=== PATIENT | male | born 1955 | race Hispanic/Latino ===

== ENCOUNTER 2017-07-19 11:17 | Emergency (ER) | payer SELFPAY | END 2017-07-19 16:31 | disposition home or self-care (01) | LOC: ERS 11:17 | DX: J11.1 Influenza due to unidentified influenza virus with other respiratory manifestations (principal) | CPT/HCPCS: 99283 ==

== ENCOUNTER 2017-07-23 16:01 | Emergency (ER) | payer SELFPAY ==
[2017-07-23 18:40] LABS: #Basophils 0.1 thou/uL (0.0-0.2); #Eosinphils 0.2 thou/uL (0.0-0.7); #Lymphocytes 2.4 thou/uL (1.20-3.40); #Neutrophils 5.3 thou/uL (1.40-6.50); %Basophils 1.2 % (0.0-1.0); %Eosinophils 2.4 % (0.0-10.0); %Lymphocytes 26.9 % (21.0-51.0); %Monocytes 10.7 % (0.0-10.0); %Neutrophils 58.7 % (42.0-75.0); Hemoglobin 15.7 g/dL (14.0-18.0); Mean Corpuscular HGB CONC 33.8 g/dL (32.0-36.0); Mean Corpuscular Hemoglobin 32.8 pg (27.0-31.0); Mean Corpuscular Volume 97.1 fl (80.0-94.0); Mean Platelet Volume 8.9 fL (7.4-10.4); Platelet Count 231 thou/uL (130-400); RBC Distribution Width 11.8 % (11.5-14.5); White Blood Cell (WBC) Count 8.9 thou/uL (4.8-10.8)
[2017-07-23 19:02] LABS: CKMB 1.6 ng/mL (0-6.6); Troponin I Less than 0.010 ng/mL (< 0.028)
[2017-07-23 19:18] LABS: ALT (SGPT) 24 U/L (8-55); AST (SGOT) 19 U/L (5-34); Albumin 4.3 g/dL (3.5-5.0); Alkaline Phosphatase 71 U/L (40-150); Anion Gap 15 mmol/L (10-20); BUN (Urea Nitrogen) 21 mg/dL (8.4-25.7); Bilirubin, Total 0.6 mg/dL (0.2-1.2); CK (CPK) 69 U/L (30-200); Calc. Creatinine Clearance 0 mL/min (70-130); Carbon Dioxide 27 mmol/L (22-29); Chloride 106 mmol/L (98-107); Estimated GFR-MDRD Greater than 90; Globulin 3.3 g/dL (2.4-3.5); Glucose 104 mg/dL (70-105); Lipase 42 U/L (8-78); Protein, Total 7.6 g/dL (6.0-8.3); Sodium 143 mmol/L (136-145)
--- NOTE | 2017-07-23 20:15 | RAD ---
AP VIEW CHEST: INDICATIONS: Chest pain. IMPRESSION: No acute cardiopulmonary abnormality. [facility] POS: [facility]
== END 2017-07-23 20:17 | disposition home or self-care (01) ==
LOC: ERS 16:01
DX: J11.1 Influenza due to unidentified influenza virus with other respiratory manifestations (principal); I10 Essential (primary) hypertension
CPT/HCPCS: 36415; 71010; 80053; 82553; 83690; 84484; 85025; 93005

== ENCOUNTER 2017-10-24 10:50 | Observation (INO) | payer SELFPAY ==
--- NOTE | 2017-10-24 11:26 | RAD ---
FRONTAL VIEW CHEST: INDICATIONS: Chest pain. COMPARISON: 07/23/2017 FINDINGS: No consolidation, effusion, or discrete pneumothorax. There is mild vascular calcification. The oss eous structures are nonacute in appearance. IMPRESSION: Stable chest without lobar consolidation. POS: [facility]
[2017-10-24 11:31] LABS: #Basophils 0.1 thou/uL (0.0-0.2); #Eosinphils 0.3 thou/uL (0.0-0.7); #Lymphocytes 2.3 thou/uL (1.20-3.40); #Monocytes 0.6 thou/uL (0.11-0.59); #Neutrophils 3.9 thou/uL (1.40-6.50); %Eosinophils 4.5 % (0.0-10.0); %Lymphocytes 31.3 % (21.0-51.0); %Monocytes 8.4 % (0.0-10.0); %Neutrophils 54.8 % (42.0-75.0); Hemoglobin 16.4 g/dL (14.0-18.0); Mean Corpuscular HGB CONC 34.7 g/dL (32.0-36.0); Mean Corpuscular Hemoglobin 32.4 pg (27.0-31.0); Mean Corpuscular Volume 93.4 fl (80.0-94.0); Mean Platelet Volume 8.8 fL (7.4-10.4); Platelet Count 203 thou/uL (130-400); RBC Distribution Width 12.2 % (11.5-14.5); Red Blood Cell (RBC) Count 5.08 mill/uL (4.70-6.10); White Blood Cell (WBC) Count 7.2 thou/uL (4.8-10.8)
[2017-10-24 11:46] LABS: ALT (SGPT) 23 U/L (8-55); AST (SGOT) 20 U/L (5-34); Albumin 4.8 g/dL (3.5-5.0); Alkaline Phosphatase 74 U/L (40-150); Anion Gap 12 mmol/L (10-20); BUN (Urea Nitrogen) 17 mg/dL (8.4-25.7); CK (CPK) 148 U/L (30-200); Calc. Creatinine Clearance 0 mL/min (70-130); Calcium 10.2 mg/dL (7.8-10.44); Carbon Dioxide 27 mmol/L (22-29); Chloride 104 mmol/L (98-107); Estimated GFR-MDRD Greater than 90; Globulin 2.9 g/dL (2.4-3.5); Glucose 101 mg/dL (70-105); Lipase 36 U/L (8-78); Protein, Total 7.7 g/dL (6.0-8.3); Sodium 139 mmol/L (136-145)
[2017-10-24 11:50] LABS: CKMB 4.1 ng/mL (0-6.6); Troponin I Less than 0.010 ng/mL (< 0.028)
[2017-10-24] MEDS ORDERED: Nitroglycerin 2% Ointment 1 INCH/1 GM Packet ONE (12:18)
[2017-10-24 14:43] LABS: Troponin I Less than 0.010 ng/mL (< 0.028)
[2017-10-24 14:44] VITALS: BMI 31.2
[2017-10-24] MEDS ORDERED: Ondansetron HCl/PF 4 MG/2 ML Vial IVP PRN ×2 (14:45→19:05)
[2017-10-24] MEDS ORDERED: Ondansetron ODT 4 MG TAB PO PRN ×2 (14:46→19:05)
[2017-10-24] MEDS ORDERED: Hydrocortisone Acetate 25 MG Suppository PR PRN (15:57)
[2017-10-24] MEDS ORDERED: cloNIDine 0.1 MG TAB PO PRN (15:57)
[2017-10-24] MEDS ORDERED: hydrALAZINE 20 MG/ML VIAL SLOW IVP PRN (15:57)
[2017-10-24] MEDS ORDERED: Nitroglycerin 2% Ointment 1 INCH/1 GM Packet TOP PRN (15:59)
[2017-10-24] MEDS ORDERED: Amlodipine 5 MG TAB PO SCH (16:00)
[2017-10-24 16:16] LABS: Hemoglobin A1c 5.7 % (4.0-6.0)
[2017-10-24 18:19] LABS: Troponin I Less than 0.010 ng/mL (< 0.028)
[2017-10-24] MEDS ORDERED: Nitroglycerin 0.4 MG TAB (25 Tab Bottle) PO PRN (19:03)
[2017-10-24] MEDS ORDERED: Acetaminophen 325 MG TAB PO PRN (19:05)
[2017-10-24] MEDS ORDERED: Senokot 8.6 MG TAB PO PRN (19:05)
[2017-10-24] MEDS ORDERED: Calcium Carbonate 500 MG ChewTAB PO PRN (19:05)
--- NOTE | 2017-10-24 19:44 | PDOC.PN ---
- Subjective Encounter Start Date: 10/24/17 Encounter Start Time: 18:00 Patient seen and examined. Note dictated. - Objective Resuscitation Status: Resuscitation Status FULL:Full Resuscitation MAR Reviewed: Yes Vital Signs & Weight: Vital Signs (12 hours) Temp Pulse Resp BP BP Pulse Ox 10/24/17 17:18 65 173/95 H 10/24/17 14:52 192/105 H 10/24/17 14:45 98.3 F 94 15 10/24/17 14:42 98.3 F 94 15 201/97 H 92 L Weight Weight 199 lb 11.821 oz I&O: 10/23/17 10/24/17 10/25/17 06:59 06:59 06:59 Intake Total 250 Balance 250 Result Diagrams: 10/24/17 11:19 10/24/17 11:19 Radiology Reviewed by me: Yes (CXR - no infiltrate) EKG Reviewed by me: Yes (SR) Phys Exam - Physical Examination Constitutional: NAD HEENT: PERRLA, moist MMs, sclera anicteric Neck: no nodes, no JVD Respiratory: no wheezing, no rales, no rhonchi, clear to auscultation bilateral Cardiovascular: RRR, no significant murmur, no rub no reproducible chest wall tenderness Gastrointestinal: soft, non-tender, no distention, positive bowel sounds Musculoskeletal: no edema Neurological: non-focal, moves all 4 limbs Lymphatic: no nodes Psychiatric: normal affect, A&O x 3 Skin: no rash Dx/Plan - Plan DVT proph w/SCDs * Dictated Review of Systems - Review of Systems Constitutional: negative: fever, chills, sweats, weakness, malaise, other Eyes: negative: Pain, Vision Change, Conjunctivae Inflammation, Eyelid Inflammation, Redness, Other ENT: negative: Ear Pain, Ear Discharge, Nose Pain, Nose Discharge, Nose Congestion, Mouth Pain, Mouth Swelling, Throat Pain, Throat Swelling, Other Respiratory: negative: Cough, Dry, Shortness of Breath, Hemoptysis, SOB with Excertion, Pleuritic Pain, Sputum, Wheezing Cardiovascular: chest pain. negative: palpitations, orthopnea, paroxysmal nocturnal dyspnea, edema, light headedness, other Gastrointestinal: negative: Nausea, Vomiting, Abdominal Pain, Diarrhea, Constipation, Melena, Hematochezia, Other Genitourinary: negative: Dysuria, Frequency, Incontinence, Hematuria, Retention , Other Musculoskeletal: negative: Neck Pain, Shoulder Pain, Arm Pain, Back Pain, Hand Pain, Leg Pain, Foot Pain, Other Skin: negative: Rash, Lesions, Moshe, Bruising, Other Neurological: negative: Weakness, Numbness, Incoordination, Change in Speech, Confusion, Seizures, Other - Medications/Allergies Allergies/Adverse Reactions: Allergies Allergy/AdvReac Type Severity Reaction Status Date / Time diphenhydramine HCl Allergy Verified 01/23/16 23:21 [From Benadryl] pseudoephedrine HCl Allergy Verified 01/23/16 23:21 [From Sudafed] Medications: Current Medications Acetaminophen (Tylenol) 650 mg PO Q4H PRN PRN Reason: Headache/Fever or Pain Amlodipine Besylate (Norvasc) 5 mg PO DAILY RUBY Aspirin (Aspirin) 325 mg PO DAILY RUBY Calcium Carbonate (Tums) 1,000 mg PO Q4H PRN PRN Reason: Heartburn or Indigestion Clonidine (Catapres) 0.1 mg PO Q4H PRN PRN Reason: Systolic BP > 180 Docusate Sodium (Colace) 100 mg PO BID RUBY Famotidine (Pepcid) 20 mg PO BID RUBY Guaifenesin (Mucinex) 600 mg PO Q12HR RUBY Hydralazine HCl (Apresoline) 10 mg SLOW IVP Q4H PRN PRN Reason: SBP Greater Than 180 Hydrocortisone Acetate (Anusol-Hc) 25 mg MA BID PRN PRN Reason: Hemorrhoids Nitroglycerin (Nitro-Bid 2% Ointment) 0.5 inch TOP Q8HR PRN PRN Reason: SBP Greater Than 180 Nitroglycerin (Nitrostat) 0.4 mg PO Q5MIN PRN PRN Reason: Chest Pain Ondansetron HCl (Zofran Odt) 4 mg PO Q6H PRN PRN Reason: Nausea/Vomiting Ondansetron HCl (Zofran) 4 mg IVP Q6H PRN PRN Reason: Nausea/Vomiting Senna (Senokot) 2 tab PO HSPRN PRN PRN Reason: Constipation Sodium Chloride (Flush - Normal Saline) 10 ml IVF Q12HR RUBY Sodium Chloride (Flush - Normal Saline) 10 ml IVF PRN PRN PRN Reason: Saline Flush
--- NOTE | 2017-10-24 19:57 | HP ---
DATE OF ADMISSION: 10/24/2017 PRIMARY CARE PHYSICIAN: None. CHIEF COMPLAINT: Chest discomfort. HISTORY OF PRESENT ILLNESS: The patient is a 62-year-old male with family history of heart disease a nd untreated hypertension, presented to the emergency room with chest discomfort. Over the past one week or so, the patient has on and off chest pressure without any aggravating or re lieving factor. Sometimes the pain gets better when he lies down on the left side. The chest discom fort was dull/tightness like sometimes pressure-like mainly in the precordial area. No aggravating o r relieving factor reported. No associated nausea, vomiting, diaphoresis, palpitations, heartburn, r ecent immobilization, travel or dyspepsia reported. In the emergency room, initial vital signs showed temperature 98.4, respiratory rate 18, pulse of 84, blood pressure 156/84 with O2 saturation 98% on room air. His EKG showed normal sinus rhythm with n onspecific ST-T wave changes. He received aspirin with nitropatch in the emergency room. He denies any chest discomfort at this time. The chest discomfort usually last for a short duration, usually l ess than 2 minutes or so. PAST MEDICAL HISTORY: 1. Hypertension, untreated. 2. Cannabis abuse. 3. Former smoker. 4. Family history of heart disease. PAST SURGICAL HISTORY: Reviewed with the patient and none. ALLERGIES: The patient is allergic to BENADRYL and SUDAFED. CURRENT HOME MEDICATIONS: Reviewed with the patient and none. SOCIAL HISTORY: The patient is a former smoker. Abuses cannabis. No alcohol or other drug use. 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 FAMILY HISTORY: Positive for MT in his brother in 50s. REVIEW OF SYSTEMS, PHYSICAL EXAMINATION AND LABORATORY FINDINGS Please refer to my progress note. IMPRESSION: 1. Chest discomfort, rule out acute coronary syndrome. 2. Hypertension, uncontrolled. 3. Cannabis abuse. 4. Family history of heart disease. 5. Obesity with a body mass index of 31.3. 6. Impaired glucose tolerance with A1c 5.7. PLAN: The patient will be monitored in the telemetry unit. The patient has extensive family history of heart disease. He probably has intermediate probability for coronary artery disease. His A1c wa s 5.7. He also has chronic left upper extremity weakness that suddenly happened approximately 10 yea rs ago. He could have had a stroke in the past. He is currently not on any medications. He was ext ensively counseled on lifestyle modification. He will undergo a stress test in the morning. We will continue aspirin. We will start amlodipine. Cannabis cessation was emphasized. Plan of care was discussed with the patient in detail. He stated understanding.
[2017-10-24] MEDS: guaiFENesin ER 600 MG TAB PO SCH (20:04)
[2017-10-24] MEDS: Famotidine 20 MG TAB PO SCH (20:04)
[2017-10-24] MEDS: Docusate 100 MG CAP PO SCH (20:04)
[2017-10-25] MEDS: guaiFENesin ER 600 MG TAB PO SCH (08:42)
[2017-10-25] MEDS: Famotidine 20 MG TAB PO SCH (08:42)
[2017-10-25] MEDS: Docusate 100 MG CAP PO SCH (08:42)
[2017-10-25] MEDS ORDERED: Amlodipine 5 MG TAB PO SCH (09:00)
[2017-10-25] MEDS ORDERED: Aspirin 325 MG TAB PO SCH (09:00)
[2017-10-25 12:36] VITALS: BP 170/90; TEMP 97.9
--- NOTE | 2017-10-25 15:10 | NM ---
RADIONUCLIDE STRESS REST MYOCARDIAL PERFUSION SCAN WITH CT ATTENUATION CORRECTION AND SPECT IMAGING LEFT VENTRICULAR WALL MOTION EVALUATION AND EJECTION FRACTION: HISTORY: Chest pain. FINDINGS: Viraj protocol was used for a total test time of 6 minutes 0 seconds. There is homogeneous uptake of radiotracer throughout the left ventricular myocardium without focal perfusion defect or reversibili ty. QGS analysis of gated SPECT images shows no focal wall motion abnormalities. TID=0.8. LHR=41%. Left ventricular ejection fraction was calculated at 65%. IMPRESSION: Normal myocardial perfusion scan. Normal left ventricular ejection fraction. POS: [facility]
--- NOTE | 2017-10-25 15:16 | DIS ---
DATE OF ADMISSION: 10/24/2017 DATE OF DISCHARGE: 10/25/2017 CONDITION AT THE TIME OF DISCHARGE: Stable and improved. DISCHARGE DIAGNOSES: 1. Chest pain, noncardiac. Acute coronary syndrome ruled out. 2. Hypertension. 3. Chronic cannabis use. 4. History of former tobacco abuse. 5. Family history of diabetes and heart disease. PRIMARY CARE PHYSICIAN: None. The patient is instructed to set up a PCP. DISCHARGE MEDICATIONS: Lopressor 12.5 mg p.o. b.i.d., aspirin 81 mg daily, amlodipine 5 mg daily. PROCEDURES DONE DURING THE HOSPITAL: Nuclear medicine stress test, which is negative for any fixed o r reversible defects. Estimated ejection fraction around 65% or more. HISTORY OF PRESENT ILLNESS: Mr. Zurita is a 62-year-old male with past medical history of hypertens ion who is rather noncompliant with his medications and medical care, presented to the emergency room with complaints of chest discomfort. He was hemodynamically stable upon presentation and his EKG sh owed normal sinus rhythm with nonspecific changes. He was admitted for ACS rule out and was given as pirin. Please see admission history and physical for further detail. HOSPITAL COURSE: His cardiac enzymes were trended and were negative. He was hemodynamically stable except that his blood pressure was high. He was started on amlodipine and later beta nohemy was add ed given his family history of diabetes and heart disease and his personal history of uncontrolled hy pertension. He tolerated this very well. Nuclear medicine stress test was done and was negative for any ischemia reversible or fixed. His chest pain has resolved by the time of his admission. Counseling was provided with medication compliance. He was seen and examined prior to discharge. Hi s physical exam this morning include temperature 97.9, pulse of 81, respirations 18, saturating 92% o n room air, blood pressure 170/90. No acute distress, awake, alert, oriented x3. Chest is clear to auscultation without any wheezing, rales or rhonchi. Rate and rhythm is regular wi thout any murmur, rubs or gallops. Discharge plan was discussed with the patient and his present in the room. Dietitian was consul elvira to give them reading material about heart healthy and low carbohydrate diets. He will be dischar ge after his discussion with the dietitian.
[2017-10-25] MEDS ORDERED: Metoprolol Tartrate 25 MG TAB PO SCH (21:00)
--- NOTE | 2017-10-26 15:02 | EKG ---
Test Reason : CHEST PAIN Blood Pressure : / mmHG Vent. Rate : 080 BPM Atrial Rate : 080 BPM P-R Int : 140 ms QRS Dur : 082 ms QT Int : 378 ms P-R-T Axes : 007 -15 031 degrees QTc Int : 435 ms Normal sinus rhythm Inferior infarct , age undetermined Abnormal ECG Confirmed by AVILA ESCOBAR ([id number]), website/blog editor EZEKIEL VALADEZ ([id number]) on 10/26/2017 3:00:40 PM Referred By: Confirmed By:AVILA ESCOBAR
--- NOTE | 2017-11-20 15:13 | STRESS ---
Acquisition Time: 2017-10-25 10:36:14 Total Exercise Time: 00:06:00 Test Indications: CHEST PAIN Medications: Protocol: IVIS Max HR: 137 BPM 85% of Pred: 160 BPM Max BP: 230/100 mmHG Max Work Load: 7.3 METS RESTING ECG: NORMAL SINUS RHYTHM AT 73 BPM SYMPTOMS: FATIGUE HYPERTENSIVE BP RESPONSE ECTOPY: NONE ECG STRESS: NO SIGNIFICANT CHANGES INTERPRETATION: NEGATIVE GXT/AWAIT NUCLEAR IMAGES FOR DEFINITIVE DIAGNOSIS Confirmed by ALPA CAM ELLEN ([id number]) on 11/20/2017 3:13:07 PM Referred By: MD Kan ALANIS Confirmed By:SHEMAR CAM PA-C
== END 2017-10-25 16:31 | disposition home or self-care (01) ==
LOC: ERS 10:50 → 2SW 12:50
PROVIDERS: ADMIT Internal Medicine; ATTEND Internal Medicine
DX: F12.10 Cannabis abuse, uncomplicated; R07.89 Other chest pain; Z83.3 Family history of diabetes mellitus; Z68.38 Body mass index [BMI] 38.0-38.9, adult; Z88.8 Allergy status to other drugs, medicaments and biological substances; Z82.49 Family history of ischemic heart disease and other diseases of the circulatory system; I10 Essential (primary) hypertension; R73.02 Impaired glucose tolerance (oral); E66.9 Obesity, unspecified; Z87.891 Personal history of nicotine dependence; Z91.14 Patient's other noncompliance with medication regimen
CPT/HCPCS: 36415; 71045; 78452; 80053; 82553; 83036; 83690; 84484; 85025; 93005; 93017; 94760; A4216; A9500; G0378

== ENCOUNTER 2018-11-21 17:27 | Emergency (ER) | payer SELFPAY | END 2018-11-21 18:53 | disposition home or self-care (01) | LOC: ERS 17:27 | DX: S30.861A Insect bite (nonvenomous) of abdominal wall, initial encounter (principal); L03.818 Cellulitis of other sites; I10 Essential (primary) hypertension; W57.XXXA Bitten or stung by nonvenomous insect and other nonvenomous arthropods, initial encounter | CPT/HCPCS: 99282 ==

== ENCOUNTER 2020-11-11 22:40 | Emergency (ER) | payer SELFPAY | END 2020-11-11 23:57 | disposition home health service (06) | LOC: ERS 22:40 | DX: K03.81 Cracked tooth (principal); I10 Essential (primary) hypertension | CPT/HCPCS: 99282 ==

== ENCOUNTER 2021-02-08 08:17 | Emergency (ER) | payer BC, SELFPAY | END 2021-02-08 10:22 | disposition home or self-care (01) | LOC: ERS 08:17 | DX: U07.1 COVID-19 (principal); I10 Essential (primary) hypertension | CPT/HCPCS: 0241U; 71045; 80053; 84484; 85025; 93005; 96374; J1885 ==

== ENCOUNTER 2024-05-01 15:03 | Inpatient (IN) | payer BC ==
[2024-05-01] MEDS ORDERED: Aspirin Chewable 81 MG TAB ONE (16:05)
[2024-05-01] MEDS ORDERED: Nitroglycerin 0.4 MG TAB 1 EACH ONE (16:05)
[2024-05-01 16:33] LABS: #Basophils 0.07 10x3/uL (0.0-0.2); %Eosinophils 4.2 % (0.0-10.0); %Lymphocytes 30.7 % (21.0-51.0); %Monocytes 11.1 % (0.0-10.0); %Neutrophils 52.7 % (42.0-75.0); Hematocrit 43.8 % (42.0-52.0); Mean Corpuscular HGB CONC 34.2 g/dL (32.0-36.0); Mean Corpuscular Hemoglobin 31.7 pg (27.0-31.0); Mean Corpuscular Volume 92.6 fL (78.0-98.0); Mean Platelet Volume 12.1 fL (7.4-10.4); Platelet Count 191 10x3/uL (130-400); RBC Distribution Width 12.5 % (11.5-14.5); Red Blood Cell (RBC) Count 4.73 mill/uL (4.70-6.10)
[2024-05-01] MEDS ORDERED: hydrALAZINE 20 MG/ML VIAL ONE ×2 (16:34→18:57)
[2024-05-01 16:57] LABS: ALT (SGPT) 25 U/L (8-55); AST (SGOT) 22 U/L (5-34); Albumin 4.1 g/dL (3.4-4.8); Alkaline Phosphatase 77 U/L (40-110); Anion Gap 10 mmol/L (10-20); BUN (Urea Nitrogen) 18 mg/dL (8.4-25.7); Bilirubin, Total 0.5 mg/dL (0.2-1.2); Calc. Creatinine Clearance 0 mL/min (70-130); Calcium 9.5 mg/dL (7.8-10.44); Carbon Dioxide 24 mmol/L (23-31); Chloride 114 mmol/L (98-107); Estimated GFR 96; Globulin 2.8 g/dL (2.4-3.5); Glucose 90 mg/dL (80-115); Lipase 42 U/L (8-78); Magnesium 2.3 mg/dL (1.6-2.6); Potassium 4.2 mmol/L (3.5-5.1); Protein, Total 6.9 g/dL (5.8-8.1); Sodium 144 mmol/L (136-145)
[2024-05-01 17:00] LABS: Troponin I Less than 0.010 ng/mL (< 0.028)
[2024-05-01] MEDS ORDERED: Ondansetron PF 4 MG/2 ML Vial IVP PRN (18:46)
[2024-05-01] MEDS ORDERED: Acetaminophen 325 MG TAB PO PRN (18:46)
[2024-05-01] MEDS ORDERED: traMADol HCl 50 MG TAB PO PRN (18:46)
[2024-05-01] MEDS ORDERED: Ondansetron ODT 4 MG TAB PO PRN (18:46)
[2024-05-01 19:37] LABS: Cardiac Risk 4.3 (Less than 4.5)
[2024-05-01 20:19] LABS: Hemoglobin A1c 5.7 % (4.0-6.0)
[2024-05-01] MEDS ORDERED: Enalaprilat Dihydrate 1.25 MG/ML VIAL SLOW IVP PRN (21:00)
[2024-05-01 22:08] VITALS: BMI 29.9
[2024-05-01] MEDS: Famotidine/PF 20 mg/2ml Vial SLOW IVP SCH (22:29)
[2024-05-01] MEDS: Famotidine 20 MG TAB PO SCH (22:29)
[2024-05-01] MEDS: hydrALAZINE 20 MG/ML VIAL SLOW IVP PRN (22:35)
[2024-05-01 22:49] LABS: Troponin I 0.011 ng/mL (< 0.028)
[2024-05-02 06:04] LABS: #Basophils 0.07 10x3/uL (0.0-0.2); %Basophils 0.9 % (0.0-1.0); %Eosinophils 4.4 % (0.0-10.0); %Monocytes 9.6 % (0.0-10.0); %Neutrophils 61.8 % (42.0-75.0); Hemoglobin 15.3 g/dL (14.0-18.0); Mean Corpuscular Hemoglobin 31.7 pg (27.0-31.0); Mean Corpuscular Volume 93.2 fL (78.0-98.0); Mean Platelet Volume 12.4 fL (7.4-10.4); Platelet Count 191 10x3/uL (130-400); RBC Distribution Width 12.9 % (11.5-14.5); Red Blood Cell (RBC) Count 4.83 mill/uL (4.70-6.10)
[2024-05-02 06:47] LABS: ALT (SGPT) 21 U/L (8-55); AST (SGOT) 16 U/L (5-34); Albumin 3.8 g/dL (3.4-4.8); Alkaline Phosphatase 64 U/L (40-110); Anion Gap 11 mmol/L (10-20); BUN (Urea Nitrogen) 17 mg/dL (8.4-25.7); Bilirubin, Total 0.6 mg/dL (0.2-1.2); Calc. Creatinine Clearance 117 mL/min (70-130); Calcium 9.4 mg/dL (7.8-10.44); Carbon Dioxide 23 mmol/L (23-31); Chloride 114 mmol/L (98-107); Estimated GFR 99; Globulin 2.5 g/dL (2.4-3.5); Glucose 108 mg/dL (80-115); Potassium 3.9 mmol/L (3.5-5.1); Protein, Total 6.3 g/dL (5.8-8.1); Sodium 144 mmol/L (136-145)
[2024-05-02] MEDS ORDERED: Losartan 25 MG TAB PO SCH (09:00)
[2024-05-02] MEDS: Enoxaparin 40 MG (0.4 mL) SYRINGE SC SCH (09:49)
[2024-05-02] MEDS: NIFEdipine XL 30 MG ER.TAB PO SCH (09:49)
[2024-05-03] MEDS: FLU (Fluad Triv) TS24-25 (65UP)/MF59C/PF 45 MCG/0.5 ML Syringe IM ONE (07:12)
[2024-05-03] MEDS ORDERED: Regadenoson 0.4 MG/5 ML SYRINGE ONE (11:27)
[2024-05-03 15:48] VITALS: BP 142/82; TEMP 97.8
== END 2024-05-03 16:23 | disposition home or self-care (01) | DRG 305 ==
LOC: ERS 15:03 → ERHOLD 17:40 → 2NO 21:50 → OBSVTOIN 05-02 18:17
PROVIDERS: ADMIT Internal Medicine; ATTEND Internal Medicine
DX: I16.0 Hypertensive urgency (principal); I10 Essential (primary) hypertension; Z79.899 Other long term (current) drug therapy; Z88.8 Allergy status to other drugs, medicaments and biological substances; Z87.891 Personal history of nicotine dependence
CPT/HCPCS: 36415; 71045; 78452; 80053; 80061; 83036; 83690; 83735; 83880; 84443; 84484; 85025; 85379; 93005; 93017; 93306; 96374; 96376; A9500; J0360; J1650; J2785

== ENCOUNTER 2025-05-13 09:01 | Emergency (ER) | payer BC, SELFPAY | END 2025-05-13 11:57 | disposition home or self-care (01) | LOC: ERS 09:01 | DX: J06.9 Acute upper respiratory infection, unspecified (principal); I10 Essential (primary) hypertension | CPT/HCPCS: 71046; 87081; 87428; 87430 ==